=== PATIENT | female | born 1945 | race Caucasian/White ===

== ENCOUNTER 2020-06-20 12:45 | Outpatient (RCR) | payer MEDICARE, MEDICAID, SELFPAY | END 2020-07-19 09:09 | disposition home or self-care (01) | LOC: HO.WCC 12:45 | PROVIDERS: Visit Provider Physician Assistant | DX: R73.03 Prediabetes (principal); N61.1 Abscess of the breast and nipple; E03.8 Other specified hypothyroidism; I10 Essential (primary) hypertension; B18.1 Chronic viral hepatitis B without delta-agent | CPT/HCPCS: 97597; 99212 ==

== ENCOUNTER 2020-06-20 14:09 | Outpatient (REF) | payer MEDICARE, MEDICAID, SELFPAY ==
[2020-06-20 15:08] LABS: MANUAL DIFF FLAG NO
[2020-06-20 15:13] LABS: Basophils Percent Auto 0.5 % (0-2); Eosinophils Absolute Auto 0.1 X10*3/uL (0.0-0.4); Hematocrit 42.4 % (37-47); Hemoglobin 13.6 g/dl (12.0-16.0); Imm Gran Abs Auto 0.01 X10*3/uL (0.00-0.03); Imm Gran Pct Auto 0.1 % (0.0-0.4); Lymphocytes Absolute Auto 2.7 X10*3/uL (1.2-4.9); Lymphocytes Percent Auto 34.5 % (20-40); Mean Corpuscular HGB Conc 32.1 g/dl (31.0-35.0); Mean Corpuscular Hemoglobin 26.6 pg (27.0-33.0); Mean Corpuscular Volume 82.8 fL (80-98); Mean Platelet Volume 11.7 fL (9.4-12.3); Monocytes Absolute Auto 0.5 X10*3/uL (0.1-1.2); Monocytes Percent Auto 6.9 % (2-11); Neutrophils Absolute Auto 4.4 X10*3/uL (2.0-8.3); Platelet Count 253 X10*3/uL (160-400); Red Blood Count 5.12 X10*6/uL (4.20-5.50); Red Cell Distribution Width 13.3 % (11.0-16.0); White Blood Count 7.7 X10*3/uL (4.8-10.8)
[2020-06-20 15:21] LABS: Estimated Average Glucose 111 mg/dL; Hemoglobin A1c % 5.5 %
[2020-06-20 15:39] LABS: Anion Gap 14 (12-20); Blood Urea Nitrogen 15 mg/dL (9-16); C Reactive Protein 0.48 mg/dL (< or = 0.50); Calcium 9.5 mg/dL (8.4-10.2); Carbon Dioxide 28 mmol/L (22-29); Chloride 106 mmol/L (96-108); Estimated Glomerular Filt Rate > 60; Glucose Random 95 mg/dL (60-115); Potassium 4.4 mmol/L (3.3-5.1); Sodium 144 mmol/L (135-145)
[2020-06-20 15:51] LABS: Erythrocyte Sedimentation Rate 10 MM/HR (0-20); Vitamin D 25-OH Total 23.3 ng/mL (>30)
[2020-06-20 15:54] LABS: Vitamin B12 488 pg/mL (200-900)
== END 2020-06-20 14:10 | disposition home or self-care (01) ==
LOC: HO.LAB 14:09
PROVIDERS: Visit Provider Physician Assistant
DX: S21.002A Unspecified open wound of left breast, initial encounter (principal); X58.XXXA Exposure to other specified factors, initial encounter; Y93.9 Activity, unspecified; Y92.9 Unspecified place or not applicable; Y99.9 Unspecified external cause status
CPT/HCPCS: 36415; 80048; 82306; 82607; 83036; 84134; 85025; 85652; 86140